=== PATIENT | female | born 1955 | race Caucasian/White ===

== ENCOUNTER 2017-05-18 06:16 | Day surgery (SDC) | payer BC ==
[~2017-05-18] VITALS: Ht 144.8 cm; Wt 66.0 kg
[2017-05-18 07:04] VITALS: Ht 144.8 cm; Wt 66.0 kg
[2017-05-18] MEDS ORDERED: LOSARTAN (07:19)
[2017-05-18] MEDS ORDERED: NAPROXEN (07:19)
[2017-05-18] MEDS ORDERED: ATENOLOL (07:19)
[2017-05-18] MEDS ORDERED: GEMFIBROZIL (07:19)
[2017-05-18 07:40] VITALS: BP 168/76; PULSE 75; RESP 16
--- NOTE | 2017-05-18 08:38 | OPPN ---
Date/Time of Note Date/Time of Note DATE: 05/18/17 TIME: 08:34 Operative Report Preoperative Diagnosis Positive occult blood in stool upper abdominal pain Postoperative Diagnosis gastric ulcers sigmoid polyp diverticulosis of colon internal hemorrhoids Operation/Procedure Performed EGD and biopsy colonoscopy and biopsy Provider: JILLIAN BOLAÑOS MD Anesthesia: other (none) Estimated blood loss: none Specimens gastric biopsy colon polyp biopsy Complications: None JILLIAN BOLAÑOS MD May 18, 2017 08:37
[2017-05-18] MEDS ORDERED: MIDAZOLAM 1 MG/ML 2 ML INJ ONE (08:43)
[2017-05-18] MEDS ORDERED: FENTAnyl 50 MCG/ML VIAL ONE (08:43)
[2017-05-18 09:06] VITALS: BP 116/66; PULSE 70; RESP 14
--- NOTE | 2017-05-18 10:48 | GILP ---
DATE OF PROCEDURE: 05/18/2017 PROCEDURE PERFORMED: 1. Esophagogastroduodenoscopy and biopsy. 2. Colonoscopy and biopsy. SURGEON: Dr. Olson. PREOPERATIVE DIAGNOSES: 1. Positive occult blood in stool. 2. Upper abdominal pain. POSTOP DIAGNOSES: 1. Gastric ulcers in the antrum and biopsies were taken for histopathology. 2. Colonoscopy all the way to the cecum. 3. Small sigmoid polyp was removed using the biopsy forceps. 4. Diverticulosis of the colon. 5. Internal hemorrhoids. INDICATION: Ms Brianna Velasquez is a 61-year-old female patient who was noted to have positive occult blood in stool. She also had upper abdominal pain not responding to therapy. The patient was scheduled for endoscopy and colonoscopy for further evaluation. The procedures and possible complications were well explained to the patient. The patient understood and consented to the procedures. DESCRIPTION OF PROCEDURE: Under the influence of fentanyl and Versed, the gastroscope was carefully introduced into the esophagus and under direct vision it was advanced to the stomach, into the pylorus, into the duodenal bulb, and descending duodenum. FINDINGS: Esophagus: Mucosa was normal. Stomach: Patient had gastric ulcers in the antrum. biopsies were taken for histopathology. The patient also had gastritis. Duodenum was normal. The colonoscope was carefully introduced in the rectum and under direct vision it was advanced all the way to the cecum. FINDINGS: The patient had a small sigmoid colon polyp and it was removed using the biopsy forceps. The patient had diverticulosis of the colon. She also had internal hemorrhoids. She tolerated the procedures very well. There was no complication from the procedures. At the end of procedure, she was awake with stable vital signs and she was discharged home in the care of her family. IMPRESSION: Please see postop diagnoses. PLAN: 1. Nexium 24 hours p.o. in the morning. 2. Await histopathology reports. 3. Next screening colonoscopy in 10 years. Dictated By: MD RADHA Poole/diamond/za /Document#: [id number] CC: Elsie Olson MD;*EndCC*
== END 2017-05-18 14:42 | disposition home or self-care (01) ==
LOC: GIL 06:16
PROVIDERS: ATTEND Internal Medicine Gastroenterology
DX: K92.1 Melena (principal); K29.50 Unspecified chronic gastritis without bleeding; D12.5 Benign neoplasm of sigmoid colon; K57.90 Diverticulosis of intestine, part unspecified, without perforation or abscess without bleeding; K64.8 Other hemorrhoids; I10 Essential (primary) hypertension
CPT/HCPCS: 43239; 45380; 88305; 88312; J2250; J3010; Z7610